=== PATIENT | male | born 1945 | race Caucasian/White ===

== ENCOUNTER 2020-02-08 04:09 | Observation (INO) | payer MEDICARE, BC ==
[~2020-02-08] VITALS: Ht 182.9 cm; Wt 98.0 kg
--- NOTE | 2020-02-08 04:44 | NUR ---
THIS PT WAS BIB [facility]BUL[facility] FROM [facility]. HE PRESENTED THERE FOR CHEST PAIN THAT HE DESCRIBES INDIGESTION RELATED. PT WAS GIVEN 324 PRIOR TO ARRIVAL, TROPONINS WERE NEGATIVE THERE. CURRENTLY STATES SOB ON EXERTION. ERP HAS BEEN TO BEDSIDE, EKG DONE. ADMITTING MD TO BEDSIDE NOW. PT HAS NO COMPLAINTS AT THIS TIME, CALL LIGHT WITHIN REACH.
[2020-02-08] MEDS ORDERED: ATOR10TA9 PO (04:48)
[2020-02-08] MEDS ORDERED: ESCI5TAB7 PO (04:51)
[2020-02-08] MEDS ORDERED: ROSU5TAB PO (04:51)
[2020-02-08] MEDS ORDERED: LISI-170 PO (04:51)
[2020-02-08 05:00] LABS: TROPONIN I < 0.015 ng/mL (0.000-0.045)
--- NOTE | 2020-02-08 05:12 | NUR ---
REPORT GIVEN TO DEONTE KOCH RN.
[2020-02-08 05:24] LABS: HCT (SEDRATE) 38.4 % (39.2-51.8)
[2020-02-08] MEDS ORDERED: ONDANSETRON 2MG/ML, 2ML IVPush PRN (05:30)
[2020-02-08] MEDS ORDERED: DOCUSATE 100 MG CAPSULE PO PRN (05:30)
[2020-02-08] MEDS ORDERED: hydrALAzine 20 MG/ML, 1ML IVPush PRN (05:30)
[2020-02-08] MEDS ORDERED: ACETAMINOPHEN 325 MG TABLET PO PRN (05:30)
[2020-02-08] MEDS ORDERED: GUAIFENESIN/DM 200-20MG, 10ML UDC PO PRN (05:30)
[2020-02-08] MEDS ORDERED: morphine SULFATE 10 MG/ML, 1ML IVPush PRN (05:30)
[2020-02-08] MEDS ORDERED: ALUMINUM/MAG/SIMETHICONE 30 ML UDC PO PRN (05:30)
[2020-02-08 05:33] VITALS: BP 153/89
[2020-02-08 05:39] LABS: TROPONIN I < 0.015 ng/mL (0.000-0.045)
[2020-02-08] MEDS: ASPIRIN 325 MG TABLET EC PO SCH (06:00)
[2020-02-08] MEDS: ENOXAPARIN 40 MG/0.4 ML SQ SCH (06:00)
[2020-02-08 06:59] VITALS: BP 135/80
[2020-02-08] MEDS ORDERED: PANTOPRAZOLE 40MG TABLET PO SCH (07:30)
[2020-02-08] MEDS ORDERED: LISINOPRIL 10 MG TABLET ONE (08:38)
[2020-02-08] MEDS ORDERED: NITROGLYCERIN 0.4 MG/SPRAY SL PRN (09:00)
[2020-02-08] MEDS ORDERED: NITROGLYCERIN 0.4 MG BOTTLE (25 TABS) SL PRN (09:00)
[2020-02-08] MEDS: ESCITALOPRAM 10MG TABLET PO SCH (09:22)
[2020-02-08] MEDS: LISINOPRIL 20 MG TABLET PO SCH (09:22)
[2020-02-08] MEDS: SODIUM CHLORIDE FLUSH 10ML SYR IVF SCH ×2 (09:22→21:14)
[2020-02-08 11:25] LABS: TROPONIN I < 0.015 ng/mL (0.000-0.045)
[2020-02-08 12:45] VITALS: BP 115/72
[2020-02-08] MEDS ORDERED: MAALOX/HYOSCYAMINE/LIDOCAINE 45 ML BTL PO ONE (15:00)
[2020-02-08] MEDS ORDERED: ATORVASTATIN 20 MG TABLET PO SCH (21:00)
[2020-02-08] MEDS: PANTOPRAZOLE 40MG TABLET PO SCH (21:14)
[2020-02-08 21:19] VITALS: BP 122/78
[2020-02-08 23:56] VITALS: BP 108/49
[2020-02-09 00:01] VITALS: BP 108/49
[2020-02-09] MEDS: ASPIRIN 325 MG TABLET EC PO SCH (05:25)
[2020-02-09] MEDS: ENOXAPARIN 40 MG/0.4 ML SQ SCH (05:25)
[2020-02-09 05:32] LABS: CHOL/HDL RATIO 2.8
[2020-02-09 05:33] LABS: LDL/HDL RATIO 1.5 (0.5-3.0)
[2020-02-09 08:56] VITALS: BP 124/78
[2020-02-09] MEDS: SODIUM CHLORIDE FLUSH 10ML SYR IVF SCH (09:23)
[2020-02-09] MEDS: LISINOPRIL 20 MG TABLET PO SCH (09:23)
[2020-02-09] MEDS: ESCITALOPRAM 10MG TABLET PO SCH (09:23)
[2020-02-09] MEDS: PANTOPRAZOLE 40MG TABLET PO SCH (09:23)
[2020-02-09] MEDS ORDERED: CALC200T3 PO (09:30)
[2020-02-09] MEDS ORDERED: PANT40TA5 PO (09:30)
== END 2020-02-09 10:29 | disposition home or self-care (01) ==
LOC: ED 04:35 → EDIP 05:21 → INTOOBSV 05:21 → 5SO 05:24 → DCLOUNGE 02-09 10:19
PROVIDERS: ADMIT Hospitalist; ATTEND Internal Medicine
DX: R07.89 Other chest pain (principal); I10 Essential (primary) hypertension; E78.5 Hyperlipidemia, unspecified; F39 Unspecified mood [affective] disorder; K21.9 Gastro-esophageal reflux disease without esophagitis; I34.0 Nonrheumatic mitral (valve) insufficiency; I07.1 Rheumatic tricuspid insufficiency; I77.810 Thoracic aortic ectasia; I25.10 Atherosclerotic heart disease of native coronary artery without angina pectoris; Z87.09 Personal history of other diseases of the respiratory system; Z87.891 Personal history of nicotine dependence; Z79.899 Other long term (current) drug therapy; Z96.653 Presence of artificial knee joint, bilateral; Z79.82 Long term (current) use of aspirin
CPT/HCPCS: 36415; 80061; 83036; 84443; 84484; 85651; 93005; 93306; 96372; 99284; G0378; J1650